=== PATIENT | male | born 1970 | race Caucasian/White ===

== ENCOUNTER 2020-04-16 10:27 | Emergency (ER) | payer OTHER ==
[~2020-04-16 10:27] MED LIST: ASPIRIN EC81 MG PO; BUPROPION XL450 MG PO; BUSPIRONE HCL15 MG PO; COZAAR 50MG TAB50 MG PO; CYCLOBENZAPRINE10 MG PO; DIFLUCAN200 MG PO; FOLIC ACID 1 MG1 MG PO; GABAPENTIN800 MG PO; GLUCOPHAGE 850850 MG PO; METOPROLOL SUCC50 MG PO; OMEPRAZOLE40 MG PO; PRAZOSIN HCL2 MG PO; QUETIAPINE FUM100 MG PO; VITAMIN B-1100 M1 PO
[2020-04-16 11:57] LABS: HEMOGLOBIN 13.3 gm/dl (14.0-17.5); RED BLOOD COUNT 4.4 M/UL (4.20-5.50); WHITE BLOOD COUNT 8.3 K/UL (4.5-11.0)
[2020-04-16 12:23] LABS: BUN/CREATININE RATIO 19 (0-10)
== END 2020-04-16 14:07 | disposition home or self-care (01) ==
LOC: ER1 10:27
PROVIDERS: Physician Assistant
DX: U07.1 COVID-19 (principal); I10 Essential (primary) hypertension; E11.9 Type 2 diabetes mellitus without complications; Z88.5 Allergy status to narcotic agent; Z88.0 Allergy status to penicillin; Z88.8 Allergy status to other drugs, medicaments and biological substances
CPT/HCPCS: 71045; 80053; 85025; 99285; U0002